=== PATIENT | male | born 1955 | race Caucasian/White ===

== ENCOUNTER 2017-05-25 06:19 | Day surgery (SDC) | payer BC ==
[~2017-05-25 06:19] MED LIST: Lactated Ringers 1,000 ML IV SCH; Sodium Chloride 0.9% 10 ML Syringe FLUSH PRN; Sodium Chloride 0.9% 2.5 ML Syringe FLUSH PRN; ceFAZolin 2 GM in Premix Bag 1 BAG IV ONE
[2017-05-25] MEDS ORDERED: fentaNYL 100 MCG/2 ML SDV ONE (07:00)
[2017-05-25] MEDS ORDERED: Midazolam 1 MG/ML 2 ML SDV ONE ×2 (07:00→07:49)
[2017-05-25] MEDS ORDERED: Propofol 200 MG/20 ML SDV ONE ×3 (07:00→08:15)
[2017-05-25] MEDS ORDERED: Dexamethasone 4 MG/ML 5 ML MDV ONE (07:02)
[2017-05-25] MEDS ORDERED: Ondansetron 4 MG/2 ML SDV ONE (07:02)
[2017-05-25] MEDS ORDERED: Heparin Sodium 100 Units/ML 3 ML Syringe ONE (07:15)
[2017-05-25] MEDS ORDERED: Lidocaine 1% 20 ML MDV ONE (07:15)
[2017-05-25] MEDS ORDERED: Bupivacaine 0.5% 10 ML SDV ONE (07:15)
--- NOTE | 2017-05-25 07:37 | PCM.PREANE ---
Preanesthetic Assessment - Anesthesia/Transfusion/Family Hx Anesthesia History: Prior Anesthesia Without Reaction Transfusion History: No Prior Transfusion(s) - Physical Assessment O2 Sat by Pulse Oximetry: 96 Respiratory Rate: 16 Vital Signs: Last Vital Signs Temp 36.2 C 05/25/17 06:28 Pulse 90 05/25/17 06:28 Resp 16 05/25/17 06:28 BP 137/78 05/25/17 06:28 Pulse Ox 96 05/25/17 06:28 Height: 1.78 m Weight: 95.254 kg - Allergies Allergies/Adverse Reactions: Allergies Allergy/AdvReac Type Severity Reaction Status Date / Time No Known Allergies Allergy Verified 05/19/17 12:03 PreAnesthesia Questionnaire HEENT History: Reports: Other (See Below) Other HEENT History: wears glasses, has upper and lower dentures Cardiovascular History: Reports: None Respiratory History: Reports: None Gastrointestinal History: Reports: None Genitourinary History: Reports: None Musculoskeletal History: Reports: Arthritis Other Musculoskeletal History: knees Neurological History: Reports: Other (See Below) Other Neuro History: has "bulging disc" in neck Psychiatric History: Reports: None Endocrine/Metabolic History: Reports: Obesity/BMI 30+ Hematologic History: Reports: None Oncologic (Cancer) History: Reports: Esophageal Dermatologic History: Reports: None - Infectious Disease History Infectious Disease History: Reports: None - Past Surgical History Head Surgeries/Procedures: Reports: None HEENT Surgical History: Reports: None Cardiovascular Surgical History: Reports: None Respiratory Surgical History: Reports: None GI Surgical History: Reports: EGD Male Surgical History: Reports: None Endocrine Surgical History: Reports: None Neurological Surgical History: Reports: None Musculoskeletal Surgical History: Reports: None Oncologic Surgical History: Reports: None Dermatological Surgical History: Reports: None - SUBSTANCE USE Smoking Status *Q: Current Every Day Smoker Tobacco Use Within Last Twelve Months: Cigarettes Recreational Drug Use History: No - HOME MEDS Home Medications: Home Meds . [No Known Home Meds] 02/26/16 [History] - CURRENT (IN HOUSE) MEDS Current Meds: Current Medications Lactated Ringer's (Ringers, Lactated) 1,000 mls @ 125 mls/hr IV ASDIRECTED FRANK Last Admin: 05/25/17 06:33 Dose: 125 mls/hr Sodium Chloride (Saline Flush) 10 ml FLUSH ASDIRECTED PRN PRN Reason: Keep Vein Open Sodium Chloride (Saline Flush) 2.5 ml FLUSH ASDIRECTED PRN PRN Reason: Keep Vein Open Discontinued Medications Bupivacaine HCl (Sensorcaine-Mpf 0.5%) Confirm Administered Dose 10 ml .ROUTE .STK-MED ONE Stop: 05/25/17 07:16 Dexamethasone (Dexamethasone) Confirm Administered Dose 20 mg .ROUTE .STK-MED ONE Stop: 05/25/17 07:03 Fentanyl (Sublimaze) Confirm Administered Dose 100 mcg .ROUTE .STK-MED ONE Stop: 05/25/17 07:01 Heparin Sodium (Porcine) (Heparin Lock Flush 100 Units/Ml) Confirm Administered Dose 900 unit .ROUTE .STK-MED ONE Stop: 05/25/17 07:16 Cefazolin Sodium/Dextrose 2 gm (/ Premix) 50 mls @ 100 mls/hr IV ONETIME ONE Stop: 05/24/17 15:38 Lidocaine HCl (Xylocaine-Mpf 1%) Confirm Administered Dose 5 ml .ROUTE .STK-MED ONE Stop: 05/25/17 07:02 Lidocaine HCl (Xylocaine 1%) Confirm Administered Dose 20 ml .ROUTE .STK-MED ONE Stop: 05/25/17 07:16 Midazolam HCl (Versed 1 Mg/Ml) Confirm Administered Dose 2 mg .ROUTE .STK-MED ONE Stop: 05/25/17 07:01 Ondansetron HCl (Zofran) Confirm Administered Dose 4 mg .ROUTE .STK-MED ONE Stop: 05/25/17 07:03 Propofol (Diprivan 20 Ml) Confirm Administered Dose 200 mg .ROUTE .STK-MED ONE Stop: 05/25/17 07:01
[2017-05-25] MEDS ORDERED: Phenylephrine 1% 10 MG/ML SDV ONE (08:04)
[2017-05-25] MEDS ORDERED: Octyl 2-Cyanoacrylate 1 Tube ONE (08:41)
--- NOTE | 2017-05-25 09:05 | PCM.OPNOTE ---
- General Post-Op/Procedure Note Date of Surgery/Procedure: 05/25/17 Operative Procedure(s): RIJ port a cath placement Findings: Right internal jugular port a cath placement Pre Op Diagnosis: Esophageal cancer Post-Op Diagnosis: same Anesthesia Technique: MAC Primary Surgeon: Marlyn Cunningham EBL in mLs: 5 Condition: Good
--- NOTE | 2017-05-25 09:26 | PCM.POSTAN ---
POST ANESTHESIA ASSESSMENT - MENTAL STATUS Mental Status: Alert, Oriented - RESPIRATORY Respiratory Status: Respiratory Rate WNL, Airway Patent, O2 Saturation Stable - CARDIOVASCULAR CV Status: Pulse Rate WNL, Blood Pressure Stable - GASTROINTESTINAL GI Status: No Symptoms - POST OP HYDRATION Hydration Status: Adequate & Stable
--- NOTE | 2017-05-25 09:26 | PCM48HPAN ---
Post Anesthesia Note - EVALUATION WITHIN 48HRS OF ANESTHETIC Vital Signs in Normal Range: Yes Patient Participated in Evaluation: Yes Respiratory Function Stable: Yes Airway Patent: Yes Cardiovascular Function Stable: Yes Hydration Status Stable: Yes Pain Control Satisfactory: Yes Nausea and Vomiting Control Satisfactory: Yes Mental Status Recovered: Yes
--- NOTE | 2017-05-25 09:39 | CR ---
EXAMINATION: Portable chest radiograph. HISTORY: Surgery. FINDINGS: The trachea is midline. The cardiomediastinal silhouette is within normal limits. No pulmonary infilt rates, effusions or pneumothorax. There is a right-sided portacatheter noted with tip projecting in t he upper SVC. Osseous structures appear unremarkable. IMPRESSION: No acute cardiopulmonary process.
[2017-05-25 09:46] VITALS: BP 103/73
--- NOTE | 2017-05-25 10:09 | CR ---
EXAMINATION: Portable chest radiograph. HISTORY: Postop. FINDINGS: The trachea is midline. The cardiomediastinal silhouette is within normal limits. No pulmonary infilt rates, effusions or pneumothorax. There is a right-sided portacatheter noted with tip in good positio n within the distal SVC. Osseous structures appear unremarkable. IMPRESSION: No acute cardiopulmonary process.
--- NOTE | 2017-05-25 14:17 | OR ---
SURGEON: JOSE MARTIN TIWARI MD DATE OF PROCEDURE: 05/25/2017 PREOPERATIVE DIAGNOSIS: Esophageal cancer. POSTOPERATIVE DIAGNOSIS: Esophageal cancer. PROCEDURE PERFORMED: Right internal jugular Port-A-Cath placement. ANESTHESIA: MAC. ESTIMATED BLOOD LOSS: 5 mL. INTAKE AND OUTPUT: See anesthesia record. COMPLICATIONS: None. INDICATIONS: The patient is a 61-year-old male with metastatic esophageal cancer. He presented to clinic for Port-A-Cath placement for chemotherapy access. We discussed the procedure as well as expected perioperative course. We discussed the risks, including bleeding, infection, or damage to surrounding structures, including hemothorax or pneumothorax. The patient verbalized understanding and wishes to proceed. PROCEDURE IN DETAIL: The patient was brought into the operative suite and placed on the OR table in supine position. A time-out was completed verifying the patient's name, age, date of , allergies, and procedure to be performed. Monitored anesthesia care was induced. A roll was placed behind the patient's shoulders and both arms tucked to the side. An ultrasound was brought in and the vascular anatomy of the right side of the neck was confirmed. The chest and neck were then prepped and draped in the usual standard fashion. The patient was placed into Trendelenburg position and using a sterile ultrasound, I located the right internal jugular vein and the adjacent right carotid artery. The area overlying these vascular structures was anesthetized with 1% lidocaine plain. A leather case finisher needle was then inserted under direct visualization into the right internal jugular vein and guidewire placed down the vessel. A C-arm was brought in and the location of the guidewire was confirmed via x-ray. I then turned my attention to the right upper chest. I anesthetized the anterior chest wall two finger breadths below the clavicle with 0.5% Marcaine plain and 1% lidocaine plain. A 4 cm incision was made using a 15 blade. Using cautery, I dissected down to the chest wall and created a subcutaneous pocket. I tunneled the Port-A-Cath tubing from the chest wall site up to the guidewire insertion site on the neck. The vein was then dilated under fluoroscopic guidance using a dilator/sheath device. The dilator was removed and the catheter tubing placed down the sheath. The sheath was then removed and the catheter tubing secured in place. X-rays were taken and the catheter tubing was pulled back so that the end of the catheter tubing was located in the superior vena cava. The catheter tubing was then trimmed at the level of the subcutaneous pocket and placed on the Port-A-Cath device. Prior to this, the catheter tubing was aspirated and flushed with injectable saline. Once the Port-A-Cath device was in place, a Barr needle was used to aspirate and good venous return was obtained. The system was then locked with 3 mL of heparinized saline. The port was then placed in the subcutaneous pocket and secured to the chest wall with interrupted 3-0 Prolene sutures. The subcutaneous pocket was then closed with interrupted 3 - 0 Vicryl in the subcutaneous space and a running 4-0 Monocryl suture in the subcuticular space. The neck incision site was closed with interrupted 4-0 Monocryl. Dermabond was applied to the incisions. Once this was allowed to dry, I accessed the port with an external Barr needle and was able to aspirate venous blood adequately. Sterile dressings were then applied. The patient tolerated the procedure well and was taken to the PACU in stable condition. A chest x-ray is pending at this time to confirm placement and to ensure no immediate complications. GUILLE GOMEZ /[id number] DANIEL
== END 2017-05-25 10:01 | disposition home or self-care (01) ==
LOC: MW.SDS 06:19
PROVIDERS: ATTEND Surgery
DX: C15.9 Malignant neoplasm of esophagus, unspecified (principal); F17.210 Nicotine dependence, cigarettes, uncomplicated; E66.9 Obesity, unspecified; M19.90 Unspecified osteoarthritis, unspecified site; Z98.890 Other specified postprocedural states; Z68.30 Body mass index [BMI] 30.0-30.9, adult
CPT/HCPCS: 36561; 71010; 76000; 76998; A9270; C1788; J1100; J1642; J2250; J2370; J2405; J3010; J7120; 00532; J2704

== ENCOUNTER 2018-01-30 10:00 | Emergency (ER) | payer BC ==
[2018-01-30] MEDS ORDERED: Adenosine 6 MG/2 ML SDV IVPUSH ONE ×2 (10:01→11:36)
[2018-01-30] MEDS ORDERED: Sodium Chloride 0.9% 10 ML Syringe FLUSH PRN ×2 (10:01→10:03)
[2018-01-30] MEDS ORDERED: Sodium Chloride 0.9% 2.5 ML Syringe FLUSH PRN ×2 (10:01→10:03)
[2018-01-30] MEDS ORDERED: Adenosine 6 MG/2 ML SDV ONE (10:02)
[2018-01-30] MEDS ORDERED: Furosemide 40 MG/4 ML VIAL ONE (10:14)
[2018-01-30] MEDS ORDERED: Nitroglycerin 2% Oint 1 GM UD Packet ONE (10:14)
[2018-01-30] MEDS ORDERED: Diltiazem 25 MG/5 ML SDV IVPUSH ONE ×2 (10:15→11:43)
[2018-01-30] MEDS ORDERED: Diltiazem 25 MG/5 ML SDV ONE (10:15)
[2018-01-30] MEDS ORDERED: Etomidate 2 MG/ML 20 ML SDV IVPUSH ONE (10:33)
[2018-01-30] MEDS ORDERED: Succinylcholine 200 MG/10 ML MDV IV ONE (10:34)
[2018-01-30] MEDS ORDERED: Furosemide 40 MG/4 ML VIAL IVPUSH ONE (10:36)
[2018-01-30] MEDS ORDERED: Rocuronium 50 MG/5 ML Vial IVPUSH ONE (10:47)
--- NOTE | 2018-01-30 10:54 | CR ---
EXAMINATION: Portable chest radiograph. HISTORY: Shortness of breath. FINDINGS: The trachea is midline. There is an endotracheal tube noted with tip 2 cm above the jeanette. Endogastr ic tube projects below the diaphragm. Right-sided portacatheter is noted. Heart is borderline in size for technique. Chronic interstitial prominence. Left basilar atelectasis and/or infiltrate noted. Tr konstantin left pleural effusion cannot be excluded. No pneumothorax. Osseous structures appear unremarkable. IMPRESSION: 1. Endotracheal tube noted with tip approximately 2 cm above the jeanette. 2. Endogastric tube and portacatheter also noted. 3. Right-sided portacatheter noted. 4. Trace left basilar atelectasis and/or infiltrate.
[2018-01-30 11:02] LABS: CHLORIDE,CL 98 mmol/L (98-107); SODIUM,NA 132 mmol/L (136-148)
[2018-01-30] MEDS ORDERED: Nitroglycerin 2% Oint 1 GM UD Packet TOP ONE (11:42)
[2018-01-30] MEDS ORDERED: Dexamethasone 10 MG/ML SDV IVPUSH ONE (11:43)
[2018-01-30 12:04] VITALS: BP 149/93
--- NOTE | 2018-01-30 12:28 | EDM.PDOC ---
ED HPI GENERAL MEDICAL PROBLEM - General Chief Complaint: Respiratory Problem Stated Complaint: AMB Time Seen by Provider: 01/30/18 10:05 Source of Information: Reports: EMS History Limitations: Reports: No Limitations - History of Present Illness INITIAL COMMENTS - FREE TEXT/NARRATIVE: History of present illness: []Patient presents to the ED by ambulance with shortness of breath and weakness. He was put on a nonrebreather and given albuterol in the field without improvement. Patient arrives in respiratory distress with a irregular heart rate 160s and 170s. She has a history of stage IV metastatic esophageal cancer who received chemotherapy last Tuesday with oxaliplatin. Review of systems: As per history of present illness and below otherwise all systems reviewed and negative. Past medical history: As per history of present illness and as reviewed below otherwise noncontributory. Surgical history: As per history of present illness and as reviewed below otherwise noncontributory. Social history: No reported history of drug or alcohol abuse. Family history: As per history of present illness and as reviewed below otherwise noncontributory. Physical exam: General: Well developed, respiratory distress, diaphoretic, afebrile HEENT: Atraumatic, normocephalic, pupils reactive, negative for conjunctival pallor or scleral icterus, mucous membranes moist, throat clear, neck supple, nontender, trachea midline. Lungs: Rhonchi throughout to auscultation, chest nontender. Heart: Irregular tachycardic Abdomen: Soft, nondistended, nontender. Negative for masses or hepatosplenomegaly. Negative for costovertebral tenderness. Pelvis: Stable nontender. Genitourinary: Deferred. Rectal: Deferred. Extremities: Atraumatic, negative for cords or calf pain. Neurovascular unremarkable. Neuro: Awake, alert, oriented. Exam nonfocal. Diagnostics: []CBC was normal white count, platelets 82,000 H&H of , chemistries sodium 126, BUN/creatinine is 29/1.6, troponin positive at 0.4 9, chest x-ray shows left basilar atelectasis Therapeutics: []Adenosine 6 mg followed by 12 mg was attempted with no change, 10 mg of diltiazem given with heart rate slowed from 160s/170s to 130s. A shunt maintain his blood pressure throughout. Patient was tiring and decision was made with the family and the patient to intubate him. Patient was given 10 mg of Decadron , 40 of Lasix ,nitro paste was put on him. Diltiazem drip was also started prior to his leaving ED despite being in a normal sinus rhythm after intubation. Impression: []Respiratory failure secondary to atrial fibrillation, stage IV metastatic esophageal cancer on chemotherapy Plan: []Was initially accepted at [facility] Dr. Hdez with the caveat that we use their air transport. As more family arrived they decided together they wanted him transferred to [facility] instead. Dr. Philippe at [facility] accepted the patient. Definitive disposition and diagnosis as appropriate pending reevaluation and review of above. Treatments BAGMAN/WOMAN: Reports: Oxygen - Related Data Allergies Allergy/AdvReac Type Severity Reaction Status Date / Time No Known Allergies Allergy Verified 01/30/18 10:58 Home Meds: Home Meds Albuterol Sulfate [Proair Hfa] 1 puff IH DAILY PRN 01/30/18 [History] Dexamethasone 1 mg PO DAILY 01/30/18 [History] Morphine [MS Contin] 15 mg PO TID 01/30/18 [History] Tiotropium [Spiriva] 18 mcg INH BID 01/30/18 [History] oxyCODONE 5 mg PO TID 01/30/18 [History] Past Medical History HEENT History: Reports: Other (See Below) Other HEENT History: wears glasses, has upper and lower dentures Cardiovascular History: Reports: None Respiratory History: Reports: None Gastrointestinal History: Reports: None Genitourinary History: Reports: None Musculoskeletal History: Reports: Arthritis Other Musculoskeletal History: knees Neurological History: Reports: Other (See Below) Other Neuro History: has "bulging disc" in neck Psychiatric History: Reports: None Endocrine/Metabolic History: Reports: Obesity/BMI 30+ Hematologic History: Reports: None Oncologic (Cancer) History: Reports: Esophageal Dermatologic History: Reports: None - Infectious Disease History Infectious Disease History: Reports: None - Past Surgical History Head Surgeries/Procedures: Reports: None HEENT Surgical History: Reports: None Cardiovascular Surgical History: Reports: None Respiratory Surgical History: Reports: None GI Surgical History: Reports: EGD Male Surgical History: Reports: None Endocrine Surgical History: Reports: None Neurological Surgical History: Reports: None Musculoskeletal Surgical History: Reports: None Oncologic Surgical History: Reports: None Dermatological Surgical History: Reports: None Social & Family History - Family History Family Medical History: Noncontributory - Tobacco Use Smoking Status *Q: Current Every Day Smoker Years of Tobacco use: 40 Packs/Tins Daily: 0.5 - Caffeine Use Caffeine Use: Reports: None - Recreational Drug Use Recreational Drug Use: No ED ROS GENERAL - Review of Systems Review Of Systems: See Below (See history of present illness) ED EXAM, GENERAL - Physical Exam Exam: See Below (See history of present illness) Course - Vital Signs Last Recorded V/S: Last Vital Signs Temp 97.4 F 01/30/18 10:00 Pulse 168 H 01/30/18 10:00 Resp 30 H 01/30/18 10:00 BP 149/93 H 01/30/18 10:00 Pulse Ox 88 L 01/30/18 10:00 - Orders/Labs/Meds Orders: Active Orders 24 hr Category Date Time Status EKG Documentation Completion [RC] STAT Care 01/30/18 10:03 Active RT Ventilator, Adult [RC] ASDIRECTED Care 01/30/18 11:13 Active CULTURE BLOOD [BC] Stat Lab 01/30/18 10:28 Received CULTURE BLOOD [BC] Stat Lab 01/30/18 10:51 Received Propofol [Diprivan 100 ML] 100 ml Med 01/30/18 11:00 Ordered IV TITRATE Propofol [Diprivan 100 ML] 100 ml Med 01/30/18 11:45 Ordered IV TITRATE Sodium Chloride 0.9% [Saline Flush] Med 01/30/18 10:01 Active 10 ml FLUSH ASDIRECTED PRN Sodium Chloride 0.9% [Saline Flush] Med 01/30/18 10:03 Active 10 ml FLUSH ASDIRECTED PRN Sodium Chloride 0.9% [Saline Flush] Med 01/30/18 10:01 Active 2.5 ml FLUSH ASDIRECTED PRN Sodium Chloride 0.9% [Saline Flush] Med 01/30/18 10:03 Active 2.5 ml FLUSH ASDIRECTED PRN Blood Culture x2 Reflex Set [OM.PC] Stat Ot 01/30/18 10:33 Ordered Desired Level of Sedation (RASS) [AST] Click To Edit Oth 01/30/18 10:49 Ordered Desired Level of Sedation (RASS) [AST] Click To Edit Ot 01/30/18 11:43 Ordered Saline Lock Insert [OM.PC] Stat [facility] 01/30/18 10:01 Ordered Saline Lock Insert [OM.PC] Stat [facility] 01/30/18 10:03 Ordered Medication Orders Propofol (Diprivan 100 Ml) 100 mls @ 0 mls/hr IV TITRATE FRANK; Protocol Propofol (Diprivan 100 Ml) 100 mls @ 0 mls/hr IV TITRATE FRANK; Protocol Sodium Chloride (Saline Flush) 10 ml FLUSH ASDIRECTED PRN PRN Reason: Keep Vein Open Sodium Chloride (Saline Flush) 2.5 ml FLUSH ASDIRECTED PRN PRN Reason: Keep Vein Open Sodium Chloride (Saline Flush) 10 ml FLUSH ASDIRECTED PRN PRN Reason: Keep Vein Open Sodium Chloride (Saline Flush) 2.5 ml FLUSH ASDIRECTED PRN PRN Reason: Keep Vein Open Labs: Laboratory Tests 01/30/18 01/30/18 01/30/18 Range/Units 10:13 10:13 11:05 WBC 8.17 (4.0-11.0) K/uL RBC 3.73 L (4.50-5.90) M/uL Hgb 12.6 L (13.0-17.0) g/dL Hct 36.0 L (38.0-50.0) % MCV 96.5 (80.0-98.0) fL MCH 33.8 H (27.0-32.0) pg MCHC 35.0 (31.0-37.0) g/dL RDW Std Deviation 64.0 H (28.0-62.0) fl RDW Coeff of Blossom 18 H (11.0-15.0) % Plt Count 82 L (150-400) K/uL MPV 10.00 (7.40-12.00) fL Add Manual Diff YES Neutrophils % (Manual) 94 H (48.0-80.0) % Band Neutrophils % 3 % Lymphocytes % (Manual) 2 L (16.0-40.0) % Monocytes % (Manual) 1 (0.0-15.0) % Nucleated RBC % 0.9 /100WBC Absolute Seg Neuts 7.7 H (1.4-5.7) Band Neutrophils # 0.2 Lymphocytes # (Manual) 0.2 L (0.6-2.4) Monocytes # (Manual) 0.1 (0.0-0.8) Nucleated RBCs # 0 K/uL ABG pH 7.251 L (7.35-7.45) ABG pCO2 60 H (35-45) mmHG ABG pO2 187 H (75-100) mmHG ABG HCO3 26 (22-26) mEq/L ABG Total CO2 24.3 ABG Base Excess -2.2 L (-2.0-2.0) Sodium 132 L (136-148) mmol/L Potassium 5.0 (3.5-5.1) mmol/L Chloride 98 (98-107) mmol/L Carbon Dioxide 22.5 (21.0-32.0) mmol/L BUN 29 H (7.0-18.0) mg/dL Creatinine 1.6 H (0.8-1.3) mg/dL Est Cr Clr Drug Dosing TNP Estimated GFR (MDRD) 43.9 ml/min Glucose 249 H (74-106) mg/dL Calcium 9.0 (8.5-10.1) mg/dL Total Bilirubin 2.0 H (0.2-1.0) mg/dL AST 59 H (15-37) IU/L ALT 68 H (14-63) IU/L Alkaline Phosphatase 85 (46-116) U/L Troponin I 0.459 H* (0.000-0.056) ng/mL Total Protein 7.3 (6.4-8.2) g/dL Albumin 2.6 L (3.4-5.0) g/dL Globulin 4.7 H (2.0-3.5) g/dL Albumin/Globulin Ratio 0.6 L (1.3-2.8) Meds: Medications Generic Name Dose Route Start Last Admin Trade Name Freq PRN Reason Stop Dose Admin Propofol 100 mls @ 0 mls/hr 01/30/18 11:00 Diprivan 100 Ml IV TITRATE FRANK Protocol 5 MCG/KG/MIN Propofol 100 mls @ 0 mls/hr 01/30/18 11:45 Diprivan 100 Ml IV TITRATE FRANK Protocol 5 MCG/KG/MIN Sodium Chloride 10 ml 01/30/18 10:01 Saline Flush FLUSH ASDIRECTED PRN Keep Vein Open Sodium Chloride 2.5 ml 01/30/18 10:01 Saline Flush FLUSH ASDIRECTED PRN Keep Vein Open Sodium Chloride 10 ml 01/30/18 10:03 Saline Flush FLUSH ASDIRECTED PRN Keep Vein Open Sodium Chloride 2.5 ml 01/30/18 10:03 Saline Flush FLUSH ASDIRECTED PRN Keep Vein Open Discontinued Medications Generic Name Dose Route Start Last Admin Trade Name Dhruvq PRN Reason Stop Dose Admin Adenosine 6 mg 01/30/18 10:01 01/30/18 10:10 Adenocard IVPUSH 01/30/18 10:02 6 mg NOW ONE Administration Adenosine Confirm 01/30/18 10:02 01/30/18 11:36 Adenocard Administered 01/30/18 10:03 Not Given Dose 18 mg .ROUTE .STK-MED ONE Adenosine 12 mg 01/30/18 11:36 01/30/18 10:11 Adenocard IVPUSH 01/30/18 11:37 12 mg NOW ONE Administration Dexamethasone 10 mg 01/30/18 11:43 01/30/18 11:48 Dexamethasone IVPUSH 01/30/18 11:44 10 mg ONETIME ONE Administration Diltiazem HCl 20 mg 01/30/18 10:15 01/30/18 11:42 Diltiazem IVPUSH 01/30/18 10:16 Not Given ONETIME ONE Diltiazem HCl Confirm 01/30/18 10:15 01/30/18 11:37 Diltiazem Administered 01/30/18 10:16 Not Given Dose 25 mg .ROUTE .STK-MED ONE Diltiazem HCl 10 mg 01/30/18 11:43 01/30/18 10:15 Diltiazem IVPUSH 01/30/18 11:44 10 mg ONETIME ONE Administration Etomidate 30 mg 01/30/18 10:33 01/30/18 10:27 Amidate IVPUSH 01/30/18 10:34 30 mg ONETIME ONE Administration Furosemide Confirm 01/30/18 10:14 01/30/18 11:38 Lasix Administered 01/30/18 10:15 Not Given Dose 40 mg .ROUTE .STK-MED ONE Furosemide 40 mg 01/30/18 10:36 01/30/18 10:55 Lasix IVPUSH 01/30/18 10:37 40 mg NOW ONE Administration Propofol Confirm 01/30/18 10:41 01/30/18 11:38 Diprivan 100 Ml Administered 01/30/18 10:42 Not Given Dose 100 mls @ as directed .ROUTE .STK-MED ONE Nitroglycerin Confirm 01/30/18 10:14 01/30/18 11:42 Nitro-Bid 2% Administered 01/30/18 10:15 Not Given Dose 1 gm .ROUTE .STK-MED ONE Nitroglycerin 1 gm 01/30/18 11:42 01/30/18 11:30 Nitro-Bid 2% TOP 01/30/18 11:43 1 gm ONETIME ONE Administration Succinylcholine Chloride 100 mg 01/30/18 10:34 01/30/18 10:29 Quelicin IV 01/30/18 10:35 100 mg ONETIME ONE Administration Vecuronium [place] 10 mg 01/30/18 10:49 01/30/18 11:39 Vecuronium IVPUSH 01/30/18 10:50 Not Given ONETIME ONE Departure - Departure Time of Disposition: 12:37 Disposition: DC/Tfer to Acute Hospital 02 Condition: Serious Clinical Impression: Primary cancer of esophagus with metastasis to other site Respiratory failure Qualifiers: Chronicity: acute Respiratory failure complication: hypercapnia Qualified Code( s): J96.02 - Acute respiratory failure with hypercapnia - Discharge Information - My Orders Last 24 Hours: My Active Orders 01/30/18 10:01 Sodium Chloride 0.9% [Saline Flush] 10 ml FLUSH ASDIRECTED PRN Sodium Chloride 0.9% [Saline Flush] 2.5 ml FLUSH ASDIRECTED PRN Saline Lock Insert [OM.PC] Stat 01/30/18 10:03 EKG Documentation Completion [RC] STAT Sodium Chloride 0.9% [Saline Flush] 10 ml FLUSH ASDIRECTED PRN Sodium Chloride 0.9% [Saline Flush] 2.5 ml FLUSH ASDIRECTED PRN Saline Lock Insert [OM.PC] Stat 01/30/18 10:28 CULTURE BLOOD [BC] Stat 01/30/18 10:33 Blood Culture x2 Reflex Set [OM.PC] Stat 01/30/18 10:49 Desired Level of Sedation (RASS) [AST] Click To Edit 01/30/18 10:51 CULTURE BLOOD [BC] Stat 01/30/18 11:00 Propofol [Diprivan 100 ML] 100 ml IV TITRATE 01/30/18 11:13 RT Ventilator, Adult [RC] ASDIRECTED 01/30/18 11:43 Desired Level of Sedation (RASS) [AST] Click To Edit 01/30/18 11:45 Propofol [Diprivan 100 ML] 100 ml IV TITRATE - Assessment/Plan Last 24 Hours: My Active Orders 01/30/18 10:01 Sodium Chloride 0.9% [Saline Flush] 10 ml FLUSH ASDIRECTED PRN Sodium Chloride 0.9% [Saline Flush] 2.5 ml FLUSH ASDIRECTED PRN Saline Lock Insert [OM.PC] Stat 01/30/18 10:03 EKG Documentation Completion [RC] STAT Sodium Chloride 0.9% [Saline Flush] 10 ml FLUSH ASDIRECTED PRN Sodium Chloride 0.9% [Saline Flush] 2.5 ml FLUSH ASDIRECTED PRN Saline Lock Insert [OM.PC] Stat 01/30/18 10:28 CULTURE BLOOD [BC] Stat 01/30/18 10:33 Blood Culture x2 Reflex Set [OM.PC] Stat 01/30/18 10:49 Desired Level of Sedation (RASS) [AST] Click To Edit 01/30/18 10:51 CULTURE BLOOD [BC] Stat 01/30/18 11:00 Propofol [Diprivan 100 ML] 100 ml IV TITRATE 01/30/18 11:13 RT Ventilator, Adult [RC] ASDIRECTED 01/30/18 11:43 Desired Level of Sedation (RASS) [AST] Click To Edit 01/30/18 11:45 Propofol [Diprivan 100 ML] 100 ml IV TITRATE
== END 2018-01-30 13:10 ==
LOC: MW.ED 10:00
DX: J96.02 Acute respiratory failure with hypercapnia (principal); I48.91 Unspecified atrial fibrillation; C15.9 Malignant neoplasm of esophagus, unspecified; C79.89 Secondary malignant neoplasm of other specified sites; F17.210 Nicotine dependence, cigarettes, uncomplicated; Z79.899 Other long term (current) drug therapy
CPT/HCPCS: 36415; 36600; 71045; 80053; 82803; 84484; 85025; 87040; 93005; 96365; 96366; 96375; 99291; 99292; A9270; J0153; J0330; J1100; J1940; J3490; 94002; 99285